=== PATIENT | male | born 1955 | race Caucasian/White ===

== ENCOUNTER → 2019-11-18 | Outpatient (CLI) | payer OTHER ==
[~2019-11-18] MED LIST: CLINDAMYCIN HC300 MG PO; LISINOPRIL40 MG PO; MEDROL DOSEPAK4 MG PO; TERAZOSIN HCL10 M1 PO; ULTRAM50 MG PO
== END | disposition home or self-care (01) ==
LOC: US 11:00
DX: I65.23 Occlusion and stenosis of bilateral carotid arteries (principal); R09.89 Other specified symptoms and signs involving the circulatory and respiratory systems; E78.5 Hyperlipidemia, unspecified; I10 Essential (primary) hypertension; Z72.0 Tobacco use

== ENCOUNTER 2022-01-12 11:31 | Emergency (ER) | payer OTHER ==
[2022-01-12 12:40] LABS: BUN 22 mg/dl (7-24); CHLORIDE 104 mmol/L (98-107); CREATININE 1.26 mg/dL (0.70-1.30); POTASSIUM 4.2 mmol/L (3.5-5.1); SODIUM 137 mmol/L (136-145)
[2022-01-12] MEDS ORDERED: TYLENOL325 M1 PO (15:09)
[2022-01-12] MEDS ORDERED: NAPROSYN500 MG PO (15:09)
== END 2022-01-12 15:12 | disposition home or self-care (01) ==
LOC: ED 11:31
PROVIDERS: Emergency Medicine
DX: M25.462 Effusion, left knee (principal); I10 Essential (primary) hypertension; Z79.899 Other long term (current) drug therapy

== ENCOUNTER 2023-10-16 13:31 | Inpatient (IN) | payer OTHER ==
[~2023-10-16] VITALS: Ht 172.7 cm; Wt 96.2 kg
[~2023-10-16 13:31] MED LIST changes: +NAPROSYN500 MG PO; +TYLENOL325 M1 PO
[2023-10-16 13:41] VITALS: BP 89/62
[2023-10-16 14:23] LABS: BASO % 0.1 % (0.0-1.0); HEMATOCRIT 52.4 % (42.0-52.0); LYMPH # 1.1 10*3/uL (1.3-4.4); LYMPH % 14.1 % (27.0-41.0); MEAN CELL VOLUME 93.2 fl (80.0-94.0); MEAN CORPUSCULAR HGB 30.1 pg (27.0-31.0); MEAN CORPUSCULAR HGB CONC 32.3 g/dl (33.0-37.0); MEAN PLATELET VOLUME 9.9 fl (9.6-12.3); MONO # 0.8 10*3/uL (0.1-1.0); MONO % 10.7 % (3.0-9.0); NEUT # 5.7 10*3/uL (2.3-7.9); NEUT % 74.8 % (47.0-73.0); PLATELET COUNT AUTOMATED 196 10*3/uL (130-400); RED BLOOD COUNT 5.62 10*6/uL (4.50-5.90); RED CELL DISTRI WIDTH 12.6 % (0-14.5); WHITE BLOOD COUNT 7.7 10*3/uL (4.8-10.8)
[2023-10-16 14:42] LABS: ACT PARTIAL THROMBO TIME 30.3 SECONDS (20.0-32.1)
[2023-10-16 14:46] LABS: POTASSIUM 4.1 mmol/L (3.4-5.1); TOTAL PROTEIN 7.2 gm/dL (6.0-8.0)
[2023-10-16] MEDS ORDERED: WATER PILL (16:08)
[2023-10-16] MEDS ORDERED: LIPITOR10 MG PO (16:09)
[2023-10-16] MEDS ORDERED: ASPIRIN CHEWABL81 MG PO (16:09)
[2023-10-16 16:21] VITALS: BP 111/70
[2023-10-16 20:15] VITALS: BP 116/76
[2023-10-16 23:49] VITALS: BP 124/86
[2023-10-17 02:41] VITALS: BP 112/76
[2023-10-17 04:11] VITALS: BP 114/78
[2023-10-17 04:31] LABS: BASO % 0.2 % (0.0-1.0); EOS % 0.2 % (1.0-4.0); HEMATOCRIT 50.2 % (42.0-52.0); LYMPH # 1.4 10*3/uL (1.3-4.4); MEAN CELL VOLUME 93.8 fl (80.0-94.0); MEAN CORPUSCULAR HGB 30.3 pg (27.0-31.0); MEAN CORPUSCULAR HGB CONC 32.3 g/dl (33.0-37.0); MEAN PLATELET VOLUME 10.5 fl (9.6-12.3); MONO # 0.8 10*3/uL (0.1-1.0); MONO % 13.7 % (3.0-9.0); NEUT # 3.8 10*3/uL (2.3-7.9); NEUT % 62.4 % (47.0-73.0); PLATELET COUNT AUTOMATED 182 10*3/uL (130-400); RED BLOOD COUNT 5.35 10*6/uL (4.50-5.90); RED CELL DISTRI WIDTH 12.7 % (0-14.5); WHITE BLOOD COUNT 6.1 10*3/uL (4.8-10.8)
[2023-10-17 04:51] LABS: POTASSIUM 4.5 mmol/L (3.4-5.1)
[2023-10-17 07:40] VITALS: BP 112/73
[2023-10-17 08:21] VITALS: BP 145/82
== END 2023-10-17 14:19 | disposition home or self-care (01) | DRG 391 ==
LOC: ED 13:31 → EDHOLD 15:51
PROVIDERS: Emergency Medicine; Student in an Organized Health Care Education/Training Program; ADMIT Internal Medicine; ATTEND Internal Medicine
DX: K52.9 Noninfective gastroenteritis and colitis, unspecified (principal); N17.0 Acute kidney failure with tubular necrosis; E44.1 Mild protein-calorie malnutrition; E87.1 Hypo-osmolality and hyponatremia; E86.0 Dehydration; R73.9 Hyperglycemia, unspecified; I10 Essential (primary) hypertension; I95.9 Hypotension, unspecified; Z20.822 Contact with and (suspected) exposure to COVID-19; F17.210 Nicotine dependence, cigarettes, uncomplicated; Z82.5 Family history of asthma and other chronic lower respiratory diseases; Z79.82 Long term (current) use of aspirin; Z79.899 Other long term (current) drug therapy; Z68.32 Body mass index [BMI] 32.0-32.9, adult